=== PATIENT | female | born 1970 | race Two or more races ===

== ENCOUNTER 2024-06-19 12:31 | Emergency (ER) | payer SELFPAY ==
[2024-06-19 12:39] VITALS: BP 145/86; PULSE 72; RESP 22; TEMP 98; BMI 27.7
[2024-06-19] MEDS ORDERED: IBUPROFEN 600 MG TABLET (FP) PO ONE (13:46)
[2024-06-19] MEDS: IBUPROFEN 600 MG TABLET (FP) PO ONE (13:51)
[2024-06-19 14:25] LABS: THROAT:GRP A STREP DETECTED (NOTDETECTED)
[2024-06-19] MEDS ORDERED: PENICILLIN G BENZATHINE 1,200,000 UNIT/2 ML PFS IM ONE (14:56)
[2024-06-19] MEDS: PENICILLIN G BENZATHINE 1,200,000 UNIT/2 ML PFS IM ONE (15:02)
== END 2024-06-19 15:23 | disposition home or self-care (01) ==
LOC: JERFT 12:31 → JER 12:31 → JERFT 15:23
DX: R05.9 Cough, unspecified (principal); J02.0 Streptococcal pharyngitis; R51.9 Headache, unspecified; R53.83 Other fatigue; R50.9 Fever, unspecified; H92.09 Otalgia, unspecified ear; Z20.822 Contact with and (suspected) exposure to COVID-19
CPT/HCPCS: 0241U-QW; 87651; 99284-25